=== PATIENT | female | born 2000 | race Caucasian/White ===

== ENCOUNTER 2020-08-17 20:31 | Emergency (ER) | payer OTHER ==
[~2020-08-17] VITALS: Ht 154.9 cm; Wt 72.6 kg
[~2020-08-17 20:31] MED LIST: CLARITIN5 MG/5 ML PO; CORDROL20 MG PO; DURICEF250 MG/5 M PO; EPI-PEN1 MG/ML IM; KEFLEX500 M1 PO; KEFLEX500 MG PO; LAMICTAL100 MG PO; MELATONIN5 M2 PO; PEPCID20 MG PO; PERIDEX 480 ML480 ML PO; PRELONE5 MG/5 ML PO; RONDEC DM 480480 ML PO; SEPTRA 200 MG/100 ML PO; VYVANSE70 MG PO; ZOFRAN4 MG/5 ML PO
[2020-08-17 20:44] VITALS: BP 120/70
== END 2020-08-17 22:25 | disposition home or self-care (01) ==
LOC: ED 20:31
DX: D17.1 Benign lipomatous neoplasm of skin and subcutaneous tissue of trunk (principal); Z91.030 Bee allergy status

== ENCOUNTER 2020-12-19 21:41 | Emergency (ER) | payer OTHER | END 2020-12-19 21:54 | disposition left against medical advice (07) | LOC: ED 21:41 | DX: A69.20 Lyme disease, unspecified (principal); Z53.21 Procedure and treatment not carried out due to patient leaving prior to being seen by health care provider ==

== ENCOUNTER → 2021-07-08 | Outpatient (CLI) | payer OTHER ==
[2021-07-08 14:30] LABS: BASO % 0.4 % (0.0-1.0); EOS % 0.1 % (1.0-4.0); LYMPH # 1.4 10*3/uL (1.3-4.4); LYMPH % 13.5 % (27.0-41.0); MEAN CELL VOLUME 89.3 fl (81.0-99.0); MEAN CORPUSCULAR HGB 29.7 pg (27.0-31.0); MEAN CORPUSCULAR HGB CONC 33.3 g/dl (33.0-37.0); MEAN PLATELET VOLUME 12.1 fl (9.6-12.3); MONO # 0.6 10*3/uL (0.1-1.0); MONO % 5.4 % (3.0-9.0); NEUT # 8.3 10*3/uL (2.3-7.9); NEUT % 80.3 % (47.0-73.0); PLATELET COUNT AUTOMATED 217 10*3/uL (130-400); RED BLOOD COUNT 4.48 10*6/uL (4.10-5.10); RED CELL DISTRI WIDTH 12.8 % (0-14.5); WHITE BLOOD COUNT 10.4 10*3/uL (4.8-10.8)
[2021-07-08 14:42] LABS: URINE AMPHETAMINES < 1000 (1000ng/ml); URINE BARBITURATES < 200 (200ng/ml); URINE BENZODIAZEPINES < 200 (200ng/ml); URINE CANNABINOIDS (THC) > 50 (50ng/ml); URINE COCAINE < 300 (300ng/ml); URINE METHADONE < 300 (300ng/ml); URINE OPIATES < 300 (300ng/ml); URINE PHENCYCLIDINE < 25 (25ng/ml)
[2021-07-08 14:46] LABS: ALBUMIN 4.3 gm/dl (3.1-4.5); ALKALINE PHOSPHATASE 77 U/L (45-117); BUN 9 mg/dl (7-24); CHLORIDE 110 mmol/L (98-107); CHOLESTEROL 140 mg/dL (<200); CPK 52 U/L (26-192); CREATININE 0.78 mg/dL (0.55-1.02); LDL CHOLESTEROL 82 mg/dL (9-159); LIPASE 85 U/L (73-393); POTASSIUM 3.7 mmol/L (3.5-5.1); SGOT/AST 5 IU/L (3-35); SGPT/ALT 19 U/L (12-78); SODIUM 141 mmol/L (136-145); TOTAL PROTEIN 8.4 gm/dL (6.4-8.2); TRIGLYCERIDES 96 mg/dl (<150)
== END | disposition home or self-care (01) ==
LOC: LAB 13:56 → US 14:00
PROVIDERS: ATTEND Pediatrics
DX: R11.2 Nausea with vomiting, unspecified (principal); D64.9 Anemia, unspecified; E86.0 Dehydration

== ENCOUNTER 2021-08-28 19:26 | Emergency (ER) | payer OTHER ==
[~2021-08-28] VITALS: Wt 68.0 kg
[2021-08-28 19:31] VITALS: BP 116/71
[2021-08-28 20:05] LABS: BASO % 0.6 % (0.0-1.0); LYMPH # 0.2 10*3/uL (1.3-4.4); LYMPH % 6.2 % (27.0-41.0); MEAN CELL VOLUME 88.2 fl (81.0-99.0); MEAN CORPUSCULAR HGB 29.5 pg (27.0-31.0); MEAN CORPUSCULAR HGB CONC 33.4 g/dl (33.0-37.0); MEAN PLATELET VOLUME 12.2 fl (9.6-12.3); MONO # 0.6 10*3/uL (0.1-1.0); MONO % 15.5 % (3.0-9.0); NEUT # 2.7 10*3/uL (2.3-7.9); NEUT % 77.1 % (47.0-73.0); PLATELET COUNT AUTOMATED 154 10*3/uL (130-400); RED BLOOD COUNT 4.31 10*6/uL (4.10-5.10); RED CELL DISTRI WIDTH 13.2 % (0-14.5); WHITE BLOOD COUNT 3.6 10*3/uL (4.8-10.8)
[2021-08-28 20:22] LABS: ALBUMIN 4.2 gm/dl (3.1-4.5); ALKALINE PHOSPHATASE 71 U/L (45-117); BUN 10 mg/dl (7-24); CHLORIDE 108 mmol/L (98-107); CREATININE 0.68 mg/dL (0.55-1.02); POTASSIUM 3.4 mmol/L (3.5-5.1); SGOT/AST 10 IU/L (3-35); SGPT/ALT 20 U/L (12-78); SODIUM 139 mmol/L (136-145); TOTAL PROTEIN 8.2 gm/dL (6.4-8.2)
[2021-08-28 21:05] LABS: BILIRUBIN Negative (Negative); BLOOD Trace-Lysed (Negative); CLARITY Cloudy (Clear); COLOR Yellow (Yellow); GLUCOSE Negative (Negative); KETONE 4+ (Negative); LEUKO ESTERASE 1+ (Negative); NITRITE Negative (Negative); PH 5.5 (4.5-8.0); SPECIFIC GRAVITY >= 1.030 (1.001-1.030)
[2021-08-28 21:17] LABS: EPITHELIAL CELLS 16-20; WBC 21-30 wbc/hpf (0-5)
[2021-08-28 21:18] LABS: BACTERIA 2+; MUCOUS 3+
[2021-08-28] MEDS ORDERED: CEFUROXIME AXE500 MG PO (22:54)
== END 2021-08-28 23:41 | disposition home or self-care (01) ==
LOC: ED 19:26
PROVIDERS: Physician Assistant
DX: N39.0 Urinary tract infection, site not specified (principal); Z20.822 Contact with and (suspected) exposure to COVID-19; E86.0 Dehydration

== ENCOUNTER 2022-04-03 12:49 | Emergency (ER) | payer OTHER ==
[~2022-04-03 12:49] MED LIST changes: +CEFUROXIME AXE500 MG PO
[2022-04-03 12:59] VITALS: BP 127/79
== END 2022-04-03 13:38 | disposition home or self-care (01) ==
LOC: ED 12:49
DX: O46.93 Antepartum hemorrhage, unspecified, third trimester (principal); Z3A.28 28 weeks gestation of pregnancy

== ENCOUNTER 2022-06-24 12:12 | Emergency (ER) | payer OTHER ==
[~2022-06-24] VITALS: Wt 81.6 kg
[2022-06-24 12:32] VITALS: BP 134/77
[2022-06-24 13:03] LABS: BASO # 0.1 10*3/uL (0.0-0.1); BASO % 0.9 % (0.0-1.0); EOS # 0.2 10*3/uL (0.0-0.4); EOS % 1.5 % (1.0-4.0); HEMATOCRIT 44.8 % (37.0-47.0); LYMPH # 1.6 10*3/uL (1.3-4.4); LYMPH % 14.8 % (27.0-41.0); MEAN CELL VOLUME 82.1 fl (81.0-99.0); MEAN CORPUSCULAR HGB 25.8 pg (27.0-31.0); MEAN CORPUSCULAR HGB CONC 31.5 g/dl (33.0-37.0); MEAN PLATELET VOLUME 12.2 fl (9.6-12.3); MONO # 0.6 10*3/uL (0.1-1.0); MONO % 5.9 % (3.0-9.0); NEUT # 8.2 10*3/uL (2.3-7.9); NEUT % 76.2 % (47.0-73.0); PLATELET COUNT AUTOMATED 247 10*3/uL (130-400); RED BLOOD COUNT 5.46 10*6/uL (4.10-5.10); RED CELL DISTRI WIDTH 15.9 % (0-14.5); WHITE BLOOD COUNT 10.7 10*3/uL (4.8-10.8)
[2022-06-24 13:18] LABS: ALKALINE PHOSPHATASE 95 U/L (45-117); BUN 11 mg/dl (7-24); CHLORIDE 111 mmol/L (98-107); CREATININE 0.91 mg/dL (0.55-1.02); LIPASE 128 U/L (73-393); POTASSIUM 3.6 mmol/L (3.5-5.1); SGOT/AST 15 IU/L (3-35); SGPT/ALT 32 U/L (12-78); SODIUM 143 mmol/L (136-145); TOTAL PROTEIN 8.9 gm/dL (6.4-8.2)
[2022-06-24] MEDS ORDERED: ONDANSETRON4 MG SL (15:02)
== END 2022-06-24 15:30 | disposition home or self-care (01) ==
LOC: ED 12:12
PROVIDERS: Physician Assistant
DX: R11.2 Nausea with vomiting, unspecified (principal); Z91.030 Bee allergy status; F17.200 Nicotine dependence, unspecified, uncomplicated

== ENCOUNTER 2024-06-20 15:30 | Emergency (ER) | payer OTHER ==
[~2024-06-20] VITALS: Ht 154.9 cm; Wt 64.4 kg
[~2024-06-20 15:30] MED LIST changes: +ONDANSETRON4 MG SL
[2024-06-20 15:45] VITALS: BP 113/72
[2024-06-20] MEDS ORDERED: Rabies Immune Globulin 150O UNIT/10 ML IM ONE (16:00)
[2024-06-20] MEDS ORDERED: Rabies Vaccine 1 ML VIAL IM ONE (16:00)
[2024-06-20] MEDS ORDERED: AMOX-CLAV 875-1 EACH PO (16:05)
== END 2024-06-20 16:56 | disposition home or self-care (01) ==
LOC: ED 15:30
DX: S61.212A Laceration without foreign body of right middle finger without damage to nail, initial encounter (principal); F90.9 Attention-deficit hyperactivity disorder, unspecified type; F31.9 Bipolar disorder, unspecified; Z91.030 Bee allergy status; W54.0XXA Bitten by dog, initial encounter; Y93.89 Activity, other specified; Y92.89 Other specified places as the place of occurrence of the external cause; Y99.8 Other external cause status

== ENCOUNTER 2024-08-02 18:24 | Emergency (ER) | payer OTHER ==
[~2024-08-02] VITALS: Ht 154.9 cm; Wt 66.2 kg
[~2024-08-02 18:24] MED LIST changes: +AMOX-CLAV 875-1 EACH PO
[2024-08-02 18:33] VITALS: BP 137/82
[2024-08-02] MEDS ORDERED: PREDNISONE50 MG PO (18:52)
[2024-08-02] MEDS ORDERED: predniSONE 20 MG TAB PO ONE (18:55)
== END 2024-08-02 19:04 | disposition home or self-care (01) ==
LOC: ED 18:24
DX: M54.32 Sciatica, left side (principal); M25.552 Pain in left hip; F90.9 Attention-deficit hyperactivity disorder, unspecified type; F31.9 Bipolar disorder, unspecified; Z91.030 Bee allergy status